=== PATIENT | male | born 1995 | race Caucasian/White ===

== ENCOUNTER 2018-03-13 21:59 | Emergency (ER) | payer OTHER ==
--- NOTE | 2018-03-13 22:32 | ER Document Report ---
ED Hand/Wrist Injury - General Chief Complaint: Hand Pain Stated Complaint: FINGER INJURY Time Seen by Provider: 03/13/18 22:30 Mode of Arrival: Ambulatory Information source: Patient Notes: Patient is a 22-year-old male who presents to the ER today for trigger finger to the index finger of the right hand. Patient has had this since November, is scheduled for surgery April 09 with leopoldo. Patient has had one trigger point injection which lasted approximately 20 minutes a few weeks ago he states. Patient has not been on any course of steroids. Patient states that it was not bothering him until approximately an hour prior to arrival when he went to open a can with that finger and it "stuck." Patient is having pain to the first knuckle and cannot fully extend the index finger of the right hand. Patient denies any other injury, fever, chills, numbness or tingling. - Related Data Allergies/Adverse Reactions: No Known Drug Allergies Allergy (Verified 03/13/18 22:03) Past Medical History - General Information source: Patient - Social History Smoking Status: Never Smoker Family History: Reviewed & Not Pertinent Review of Systems - Review of Systems Constitutional: No symptoms reported EENT: No symptoms reported Cardiovascular: No symptoms reported Respiratory: No symptoms reported Gastrointestinal: No symptoms reported Genitourinary: No symptoms reported Male Genitourinary: No symptoms reported Musculoskeletal: See HPI Skin: No symptoms reported Hematologic/Lymphatic: No symptoms reported Neurological/Psychological: No symptoms reported Physical Exam - Vital signs Vitals: Temp Pulse Resp BP Pulse Ox 98.0 F 63 14 127/74 H 99 03/13/18 22:20 03/13/18 22:20 03/13/18 22:20 03/13/18 22:20 03/13/18 22:20 - Notes Notes: PHYSICAL EXAMINATION: GENERAL: Well-appearing and in no acute distress. HEAD: Atraumatic, normocephalic. EYES: Pupils equal round and reactive to light, extraocular movements intact, sclera anicteric, conjunctiva are normal. NECK: Normal range of motion, supple without lymphadenopathy LUNGS: CTAB and equal. No wheezes rales or rhonchi. HEART: Regular rate and rhythm without murmurs EXTREMITIES: Decreased range of motion of the second digit to the right hand, limited extension, normal flexion, no tenderness to hand/finger, no pitting edema. No cyanosis. NEUROLOGICAL: Cranial nerves grossly intact. Normal sensory exams. PSYCH: Normal mood, normal affect. SKIN: Warm, Dry, normal turgor, no rashes or lesions noted Course - Re-evaluation Re-evalutation: 03/14/18 01:26 trigger point injection with solumedrol and lidocaine was unsuccessful, pt placed on oral steroids and given Dr. Bolanos, orthopedic neurological surgeon, information to call next business day. pt does have some relief of pain from lidocaine injection. - Vital Signs Vital signs: Temp Pulse Resp BP Pulse Ox 98.6 F 70 14 126/62 H 100 03/14/18 00:33 03/14/18 00:33 03/14/18 00:33 03/14/18 00:33 03/14/18 00:33 Procedures - Additional Procedures trigger point injection Time performed: 23:00 - pt tolerated well, prepped with betadine, injected over flexor tendon of 2nd digit to right hand Discharge - Discharge Clinical Impression: Trigger finger Qualifiers: Trigger finger location: index finger Laterality: right Qualified Code(s): M65.321 - Trigger finger, right index finger Condition: Stable Disposition: HOME, SELF-CARE Additional Instructions: Return immediately for any new or worsening symptoms. Follow up with Leopoldo or Dr. Bolanos, whom I have given you information for, call tomorrow to make followup appointment. Prescriptions: Methylprednisolone [Medrol Dosepack (4 mg/Tab) 21 Tab/Dosepak] 4 mg PO ASDIR PRN #[id number] PRN Reason: Referrals: KAT BOLANOS DO [ACTIVE STAFF] - Follow up as needed
[2018-03-13] MEDS ORDERED: LIDOCAINE 2% INJ (20 MG/ML) 20 ML MDV INJ ONE (22:49)
[2018-03-13] MEDS ORDERED: TRIAMCINOLONE ACETONIDE INJ 10 MG/1 ML 5 ML VIAL INJ SCH (23:00)
[2018-03-13] MEDS ORDERED: METHYLPREDNISOLONE ACETATE INJ 80 MG/1 ML VIAL IM ONE (23:15)
[2018-03-14] MEDS ORDERED: HYDROCODONE/ACETAMINOPHEN 5-325 MG (6 TAB/ER DISP) PO PRN (00:11)
[2018-03-14] MEDS ORDERED: PREDNISONE 20 MG TABLET PO ONE (00:11)
[2018-03-14 00:37] VITALS: BP 126/62
== END 2018-03-14 00:33 | disposition home or self-care (01) ==
LOC: ER 21:59
DX: M65.321 Trigger finger, right index finger (principal)
CPT/HCPCS: 99283; 96372; 20552; J3490; J1040; J7512

== ENCOUNTER 2019-12-31 02:22 | Emergency (ER) | payer OTHER ==
[2019-12-31] MEDS ORDERED: LIDOCAINE 1%/EPINEPHRINE INJ 20 ML VIAL INJ ONE (03:40)
--- NOTE | 2019-12-31 03:43 | ER Document Report ---
HPI - HPI Time Seen by Provider: 12/31/19 03:34 Pain Level: 2 Context: Patient is a 24-year-old male that comes emergency department for chief complaint of laceration to the left eyebrow area. He states that he got up to go to the bathroom, slipped on the wet bathroom floor, and landed hitting his head against the tile. He states that he tried to catch himself with his hands but his hands slipped as well. He denies wrist pain, loss of consciousness, current headache, vomiting. He denies alcohol. His tetanus is up-to-date within 5 years. He takes no daily medications, denies any past medical history, denies any other complaints. Past Medical History - General Information source: Patient - Social History Smoking Status: Current Every Day Smoker Frequency of alcohol use: None Lives with: Family Family History: Reviewed & Not Pertinent Patient has suicidal ideation: No Patient has homicidal ideation: No Renal/ Medical History: Denies: Hx Peritoneal Dialysis Surgical Hx: Negative - Immunizations Immunizations up to date: Yes Hx Diphtheria, Pertussis, Tetanus Vaccination: Yes Vertical Provider Document - CONSTITUTIONAL General Appearance: WD/WN, No Apparent Distress - INFECTION CONTROL TRAVEL OUTSIDE OF THE [place] IN LAST 30 DAYS: No - HEENT HEENT: Normal ENT Exam - Unremarkable oropharyngeal exam, normal teeth, normal nasal and sinus exams, unremarkable eyes, eyelids, eyebrows, Normocephalic. negative: Atraumatic - Just superior to the left eyebrow is a horizontal partial-thickness linear laceration approximately 2.5 cm in length. No other signs of trauma. - NECK Neck: Normal Inspection - RESPIRATORY Respiratory: Breath Sounds Normal, No Respiratory Distress - CARDIOVASCULAR Cardiovascular: Regular Rate, Regular Rhythm - GI/ABDOMEN Gastrointestinal: Abdomen Soft, Abdomen Non-Tender - BACK Back: Normal Inspection - Normal including cervical exam - MUSCULOSKELETAL/EXTREMETIES Musculoskeletal/Extremeties: MAEW, FROM, Non-Tender - NEURO Level of Consciousness: Awake, Alert, Appropriate Motor/Sensory: No Motor Deficit, No Sensory Deficit - DERM Integumentary: Warm, Dry, No Rash Course - Re-evaluation Re-evalutation: Patient with a laceration from the head injury, however he has no neurological deficits, no evidence of any cervical/spinal injury, no current headache. Wound was repaired, discussed wound care, head precautions, postconcussive syndrome, return precautions. Patient and significant other state appreciation and agreement. Stable at time of discharge. - Vital Signs Vital signs: Temp Pulse Resp BP Pulse Ox 97.9 F 80 15 138/76 H 100 12/31/19 02:27 12/31/19 02:27 12/31/19 02:27 12/31/19 02:27 12/31/19 02:27 Procedures - Laceration/Wound Repair Left forehead Wound length (cm): 2.5 Wound's Depth, Shape: Linear Laceration pre-procedure: Sterile PPE donned, Sterile drapes applied, Shur-Clens applied Anesthetic type: 1% Lidocaine w/epi Volume Anesthetic (mLs): 3 Wound explored: Clean, No foreign body removed Wound Repaired With: Sutures Suture Size/Type: 6:0, Ethilon Number of Sutures: 5 Layer Closure?: No Post-procedure NV exam normal: Yes Complications: No Discharge - Discharge Clinical Impression: Eyebrow laceration Qualifiers: Encounter type: initial encounter Laterality: left Qualified Code(s): S01.112A - Laceration without foreign body of left eyelid and periocular area, initial encounter Condition: Stable Disposition: HOME, SELF-CARE Additional Instructions: The sutures need to be removed in 5 to 7 days at a medical facility. Keep clean, clean with soap and water, dab dry. Avoid soaking or scrubbing. You can keep a thin film of topical antibiotic over the area. It is quite likely will have some postconcussive symptoms, see head injury precautions and postconcussive symptoms listed below. Return for any concerning symptoms. Head Injury Precautions At this point, there is no evidence that your head injury is serious. Observation is necessary, however. Limit activity for the first 24 hours. During the first 24 hours, check to see approximately every two to three hours that the patient is easily arousa ble, responds normally, and can perform common tasks such as walking without difficulty. Contact your doctor or go to the hospital if any of the following things occur: Persistent vomiting, difficulty in arousing the patient, worsening or continued headache, or failure to improve as expected. Head injuries can cause symptoms that persist for a few days or even a few weeks. Post-Concussion Syndrome Post-concussion syndrome often follows a mild head injury. Dizziness, mild nausea, mild headache, trouble concentrating, and a general sense of "not being right" may persist for a week or two. This is a frequent complication of concussion. However, if the symptoms worsen, or new symptoms develop, you should be re-examined by the physician. There is no specific cure for post-concussion syndrome. You can take mild pain medication such as ibuprofen or acetaminophen. While you should not drive if you are dizzy, you can get back to your regular activities as quickly as the symptoms will allow. And while vigorous exercise may worsen the headache, mild physical activity often is helpful. Sitting and thinking about your symptoms will worsen them. If difficulties continue, you may need referral for special therapy to help you regain full mental function. Call the physician if you are worsening, or if symptoms are still present in one week. Report any new symptoms immediately. Forms: Return to Work
[2019-12-31 05:28] VITALS: BP 109/65
== END 2019-12-31 05:30 | disposition home or self-care (01) ==
LOC: ER 02:22
DX: S01.112A Laceration without foreign body of left eyelid and periocular area, initial encounter (principal); R11.10 Vomiting, unspecified; R51 Headache; W01.0XXA Fall on same level from slipping, tripping and stumbling without subsequent striking against object, initial encounter; F17.200 Nicotine dependence, unspecified, uncomplicated
CPT/HCPCS: 99282; 12011; J3490